=== PATIENT | male | born 1970 | race Caucasian/White ===

== ENCOUNTER 2016-12-28 21:15 | Emergency (ER) | payer MEDICARE, OTHER ==
[~2016-12-28 21:15] MED LIST: ASAB PO; COREG3 PO; DSS PO; HALF81 PO; HUMULIN SC; IMDUR60 PO; INSNOVR SC; K500 PO; KLOR-CON M2020 MEQ PO; LANTUS SC; LEVEMIR SC; LIPITOR40 PO; PLAVIX PO; PRIN10 PO; PRIN20 PO; RAN500 PO; SLEEP AID PO; ZESTRIL40 MG PO; [UNRECOGNIZED DRUG - OTHER]
[2016-12-28 21:19] LABS: BASOPHILS 0.2 %; BASOPHILS ABSOLUTE 0.02 10/3/uL (0.0-0.16); EOSINOPHILS 2.3 %; ER CBC TAT 0 Hrs 05 Mins; HEMOGLOBIN 13.4 g/dL (13.6-17.8); IMMATURE GRANULOCYTES 0.2 %; IMMATURE GRANULOCYTES ABSOLUTE 0.02 10/3/uL (0.0-0.11); MEAN CORPUS HGB CONC 35.7 g/dL (32.0-36.0); MEAN CORPUSCULAR HEMOGLOB 30.3 pg (26.0-34.0); MEAN PLATELET VOLUME 9.9 fL (9.2-13.0); MONOCYTES 8.2 %; NEUTROPHILS 68.1 %; NEUTROPHILS ABSOLUTE 5.82 10/3/uL (2.02-8.40); PLATELET COUNT 297 10/3/uL (150-400); RBC DISTRIBUTION WIDTH 12.7 % (12.0-16.0); WHITE BLOOD CELLS 8.6 10/3/uL (4.5-10.5)
[2016-12-28 21:21] LABS: HEMATOCRIT 37.5 % (40.0-51.0); MANUAL DIFF NO %; MEAN CORPUSCULAR VOLUME 84.8 fL (80-100); RED CELL COUNT 4.42 10/6/uL (4.7-6.1)
[2016-12-28 21:37] LABS: BUN (BLOOD UREA NITROGEN) 9 MG/DL (6-23); CALCIUM, SERUM 8.9 MG/DL (8.5-10.4); CHEST PAIN PROFILE TAT 0 Hrs 23 Mins; CHLORIDE, SERUM 102 MMOL/L (96-112); CO2 (CARBON DIOXIDE) 28 MMOL/L (24-34); CREATININE 1.34 MG/DL (0.70-1.30); GFR AFRICAN AMERICAN 74 ML/MIN (>=60); GFR NON AFRICAN AMERICAN 64 ML/MIN (>=60); POTASSIUM, SERUM 4.3 MMOL/L (3.5-5.3); SODIUM, SERUM 139 MMOL/L (135-148); TROPONIN I 0.03 NG/ML (<0.05)
[2016-12-28 21:39] LABS: GLUCOSE, SERUM 397 MG/DL (60-99)
[2016-12-28 21:40] LABS: PARTIAL THROMBO TIME 26.2 SEC (22.5-37.2); PROTIME (NOT ORD) 12.7 SEC (12.0-14.5)
[2017-05-17] MEDS ORDERED: INSNOVR SC (00:36)
[2017-05-17] MEDS ORDERED: LISINOPRIL40 MG PO (00:37)
[2017-05-17] MEDS ORDERED: IMDUR30 PO (00:37)
[2017-05-25] MEDS ORDERED: NORV10 PO (17:26)
[2017-05-25] MEDS ORDERED: LIPITOR40 PO (17:27)
[2017-05-25] MEDS ORDERED: ASAB PO (17:27)
[2017-05-25] MEDS ORDERED: PLAVIX PO (17:29)
[2017-05-25] MEDS ORDERED: IODOSORB TOP (17:29)
[2017-05-25] MEDS ORDERED: DOK100 MG PO (17:30)
[2017-05-25] MEDS ORDERED: FOLIC PO (17:30)
[2017-05-25] MEDS ORDERED: LOP50 PO (17:32)
[2017-05-25] MEDS ORDERED: MVI PO (17:32)
[2017-05-25] MEDS ORDERED: PROTONIX PO (17:33)
[2017-05-25] MEDS ORDERED: LEVEMIR SC (17:34)
[2017-05-25] MEDS ORDERED: AUG875 PO (17:39)
[2017-05-25] MEDS ORDERED: PCET PO (17:40)
[2017-05-25] MEDS ORDERED: V2 PO (17:40)
== END 2016-12-28 22:47 | disposition home or self-care (01) ==
LOC: ER 21:15
PROVIDERS: Specialist
DX: R07.9 Chest pain, unspecified (principal); E11.65 Type 2 diabetes mellitus with hyperglycemia; I10 Essential (primary) hypertension; Z98.61 Coronary angioplasty status; Z95.1 Presence of aortocoronary bypass graft; F17.200 Nicotine dependence, unspecified, uncomplicated; Z88.5 Allergy status to narcotic agent; Z79.899 Other long term (current) drug therapy; Z79.82 Long term (current) use of aspirin
CPT/HCPCS: 71010; 80048; 83735; 84484; 85025; 85610; 85730; 93005; 96374; 96375; 99285; A9270-GY; J1885

== ENCOUNTER 2017-03-14 06:03 | Emergency (ER) | payer MEDICARE, OTHER ==
[2017-03-14 03:27] LABS: BASOPHILS 0.3 %; BASOPHILS ABSOLUTE 0.03 10/3/uL (0.0-0.16); EOSINOPHILS 5.1 %; EOSINOPHILS ABSOLUTE 0.49 10/3/uL (0.0-0.53); ER CBC TAT 0 Hrs 11 Mins; HEMOGLOBIN 13.9 g/dL (13.6-17.8); IMMATURE GRANULOCYTES 0.2 %; IMMATURE GRANULOCYTES ABSOLUTE 0.02 10/3/uL (0.0-0.11); MANUAL DIFF NO %; MEAN CORPUS HGB CONC 35.6 g/dL (32.0-36.0); MEAN CORPUSCULAR HEMOGLOB 29.1 pg (26.0-34.0); MEAN CORPUSCULAR VOLUME 81.8 fL (80-100); MEAN PLATELET VOLUME 10.2 fL (9.2-13.0); MONOCYTES 7.6 %; MONOCYTES ABSOLUTE 0.73 10/3/uL (0.21-1.20); NEUTROPHILS 56.8 %; NEUTROPHILS ABSOLUTE 5.49 10/3/uL (2.02-8.40); PLATELET COUNT 345 10/3/uL (150-400); RED CELL COUNT 4.77 10/6/uL (4.7-6.1); WHITE BLOOD CELLS 9.7 10/3/uL (4.5-10.5)
[2017-03-14 03:32] LABS: INTERNATIONAL NORMAL RATI 0.9 UNITS (-); PARTIAL THROMBO TIME 27.8 SEC (22.5-37.2); PROTIME (NOT ORD) 12.3 SEC (12.0-14.5)
[2017-03-14 03:45] LABS: BUN (BLOOD UREA NITROGEN) 7 MG/DL (6-23); CALCIUM, SERUM 9.1 MG/DL (8.5-10.4); CHEST PAIN PROFILE TAT 0 Hrs 29 Mins; CHLORIDE, SERUM 99 MMOL/L (96-112); CO2 (CARBON DIOXIDE) 28 MMOL/L (24-34); CREATININE 1.15 MG/DL (0.70-1.30); GFR AFRICAN AMERICAN 89 ML/MIN (>=60); GFR NON AFRICAN AMERICAN 77 ML/MIN (>=60); GLUCOSE, SERUM 342 MG/DL (60-99); SODIUM, SERUM 137 MMOL/L (135-148); TROPONIN I <0.02 NG/ML (<0.05)
[2017-03-14 03:46] LABS: POTASSIUM, SERUM 3.4 MMOL/L (3.5-5.3)
[2017-05-17] MEDS ORDERED: INSNOVR SC (00:36)
[2017-05-17] MEDS ORDERED: LISINOPRIL40 MG PO (00:37)
[2017-05-17] MEDS ORDERED: IMDUR30 PO (00:37)
[2017-05-25] MEDS ORDERED: NORV10 PO (17:26)
[2017-05-25] MEDS ORDERED: LIPITOR40 PO (17:27)
[2017-05-25] MEDS ORDERED: ASAB PO (17:27)
[2017-05-25] MEDS ORDERED: IODOSORB TOP (17:29)
[2017-05-25] MEDS ORDERED: PLAVIX PO (17:29)
[2017-05-25] MEDS ORDERED: DOK100 MG PO (17:30)
[2017-05-25] MEDS ORDERED: FOLIC PO (17:30)
[2017-05-25] MEDS ORDERED: LOP50 PO (17:32)
[2017-05-25] MEDS ORDERED: MVI PO (17:32)
[2017-05-25] MEDS ORDERED: PROTONIX PO (17:33)
[2017-05-25] MEDS ORDERED: LEVEMIR SC (17:34)
[2017-05-25] MEDS ORDERED: AUG875 PO (17:39)
[2017-05-25] MEDS ORDERED: V2 PO (17:40)
[2017-05-25] MEDS ORDERED: PCET PO (17:40)
== END 2017-03-14 07:06 | disposition home or self-care (01) ==
LOC: ER 06:03
PROVIDERS: Specialist
DX: R07.9 Chest pain, unspecified (principal); E11.9 Type 2 diabetes mellitus without complications; I10 Essential (primary) hypertension; F17.200 Nicotine dependence, unspecified, uncomplicated; Z95.5 Presence of coronary angioplasty implant and graft; Z89.512 Acquired absence of left leg below knee; Z88.5 Allergy status to narcotic agent; Z79.4 Long term (current) use of insulin; Z79.82 Long term (current) use of aspirin; Z79.899 Other long term (current) drug therapy
CPT/HCPCS: 71020; 80048; 82962; 83735; 84484; 85025; 85610; 85730; 93005; 96374; 99285; A9270-GY